=== PATIENT | female | born 1990 | race Caucasian/White ===

== ENCOUNTER → 2020-05-21 | Outpatient (CLI) | payer BC ==
[~2020-05-21] MED LIST: CLAR10CA3 PO; ENTY1INJ IV; MULTCAP PO; PROAAER10 INH; SERT-141 PO; SING10TA32 PO
== END ==
LOC: EDUNIT# 11:55 → M LABSMTC 11:59
PROVIDERS: ATTEND Anesthesiology
DX: Z01.812 Encounter for preprocedural laboratory examination (principal); Z20.828 Contact with and (suspected) exposure to other viral communicable diseases
CPT/HCPCS: C9803; U0003

== ENCOUNTER 2020-05-26 07:44 | Day surgery (SDC) | payer BC ==
[~2020-05-26] VITALS: Ht 160 cm; Wt 119.7 kg
[~2020-05-26 07:44] MED LIST changes: -ENTY1INJ IV; +NS 1,000 ML IV ONE
[2020-05-26] MEDS ORDERED: propofoL 200 MG/20 ML VIAL As Ordered ONE ×2 (08:48→09:29)
--- NOTE | 2020-05-26 09:31 | ROOR ---
Patient Name: Genevieve Johnson Procedure Date: 05/26/2020 8:47 AM Date of : 1990 Age: 29 Room: [facility] Gender: Female Note Status: Finalized Procedure: Colonoscopy Indications: Follow-up of Crohn's disease of the small bowel and colon, Disease activity assessment of Crohn's disease of the small bowel and colon, Assess therapeutic response to therapy of Crohn's disease of the small bowel and colon Providers: Phan Putnam MD Referring MD: Shahla Hurst NP Requesting Provider: Medicines: Monitored Anesthesia Care Complications: No immediate complications. Procedure: Pre-Anesthesia Assessment: - Prior to the procedure, a History and Physical was performed, and patient medications and allergies were reviewed. The patient is competent. The risks and benefits of the procedure and the sedation options and risks were discussed with the patient. All questions were answered and informed consent was obtained. Patient identification and proposed procedure were verified by the physician, the nurse and the anesthesiologist in the procedure room. Mental Status Examination: alert and oriented. Airway Examination: normal oropharyngeal airway and neck mobility. Respiratory Examination: clear to auscultation. CV Examination: normal. Prophylactic Antibiotics: The patient does not require prophylactic antibiotics. Prior Anticoagulants: The patient has taken no previous anticoagulant or antiplatelet agents. ASA Grade Assessment: II - A patient with mild systemic disease. After reviewing the risks and benefits, the patient was deemed in satisfactory condition to undergo the procedure. The anesthesia plan was to use monitored anesthesia care (MAC). Immediately prior to administration of medications, the patient was re-assessed for adequacy to receive sedatives. The heart rate, respiratory rate, oxygen saturations, blood pressure, adequacy of pulmonary ventilation, and response to care were monitored throughout the procedure. The physical status of the patient was re-assessed after the procedure. The Colonoscope was introduced through the anus and advanced to the terminal ileum, with identification of the appendiceal orifice and IC valve. The colonoscopy was performed without difficulty. The patient tolerated the procedure well. The quality of the bowel preparation was good. The terminal ileum, ileocecal valve, appendiceal orifice, and rectum were photographed. Scope insertion time was 3 minutes. Scope withdrawal time was 11 minutes. The total duration of the procedure was 14 minutes. Findings: The perianal exam findings include non-thrombosed external hemorrhoids, perianal fistula and skin tags. The terminal ileum contained a few ten mm ulcers. No bleeding was present. No stigmata of recent bleeding were seen. Biopsies were taken with a cold forceps for histology. Verification of patient identification for the specimen was done by the physician and nurse using the patient's name, date and medical record number. Estimated blood loss was minimal. Inflammation characterized by erosions, friability and granularity was found as patches surrounded by normal mucosa in the rectum, in the descending colon, in the ascending colon and at the cecum. This was moderate in severity and graded as Rutgeerts Score i2 (more than five aphthous lesions with normal intervening mucosa or skip areas of larger lesions or lesions confined to the ileocolonic anastomosis). Biopsies were taken with a cold forceps for histology. A fistula was found in the rectum. Non-bleeding external and internal hemorrhoids were found during retroflexion. The hemorrhoids were medium-sized. Impression: - Non-thrombosed external hemorrhoids, perianal fistula and perianal skin tags found on perianal exam. - A few ulcers in the terminal ileum. Biopsied. - Crohn's disease, with ileitis and colitis. Inflammation was found in the rectum, in the descending colon, in the ascending colon and at the cecum. This was moderate in severity and graded as Rutgeerts Score i2 (more than five aphthous lesions or skip areas of larger lesions or lesions confined to the ileocolonic anastomosis). Biopsied. - Colonic fistula. - Non-bleeding external and internal hemorrhoids. Recommendation: - Patient has a contact number available for emergencies. The signs and symptoms of potential delayed complications were discussed with the patient. Return to normal activities tomorrow. Written discharge instructions were provided to the patient. - High fiber diet. - Continue present medications. - Await pathology results. - Repeat colonoscopy in 1 year to check healing and to evaluate the response to therapy. - Return to GI clinic 1 - 2 weeks. Please call GI clinic @ [phone] for apppointment date and time. - Return to primary care physician. Phan Putnam MD Phan Putnam MD 05/26/2020 9:30:52 AM Electronically signed by Phan Putnam MD Number of Addenda: 0 Note Initiated On: 05/26/2020 8:47 AM Estimated Blood Loss: Estimated blood loss was minimal.
[2020-05-26 09:45] VITALS: BP 135/83
== END 2020-05-26 09:55 | disposition home or self-care (01) ==
LOC: M OPP 07:44
PROVIDERS: ATTEND Internal Medicine Gastroenterology
DX: K60.3 Anal fistula (principal); K64.4 Residual hemorrhoidal skin tags; K64.8 Other hemorrhoids; K50.813 Crohn's disease of both small and large intestine with fistula; Z09 Encounter for follow-up examination after completed treatment for conditions other than malignant neoplasm; Z79.899 Other long term (current) drug therapy

== ENCOUNTER 2020-07-08 13:59 | Outpatient (CLI) | payer BC ==
[~2020-07-08] VITALS: Ht 160 cm; Wt 117.9 kg
[~2020-07-08 13:59] MED LIST changes: -NS 1,000 ML IV ONE
[2020-07-08] MEDS ORDERED: VEDOLIZUMAB 300 MG in NS 250 ML IV ONE (14:00)
[2020-07-08 15:09] VITALS: BP 132/90
[2020-07-08] MEDS ORDERED: ENTY1INJ IV (15:13)
[2020-07-08 15:50] VITALS: BP 130/83
== END 2020-07-08 15:50 | disposition home or self-care (01) ==
LOC: M INFU 13:59
PROVIDERS: ATTEND Internal Medicine Gastroenterology
DX: K50.90 Crohn's disease, unspecified, without complications (principal)
CPT/HCPCS: 96365; J3380

== ENCOUNTER 2020-07-22 13:42 | Outpatient (CLI) | payer BC ==
[~2020-07-22] VITALS: Ht 160 cm; Wt 117.9 kg
[~2020-07-22 13:42] MED LIST changes: +ENTY1INJ IV
[2020-07-22 13:45] VITALS: BP 113/64
[2020-07-22] MEDS ORDERED: VEDOLIZUMAB 300 MG in NS 250 ML IV ONE (14:00)
[2020-07-22 15:10] VITALS: BP 131/88
== END 2020-07-22 15:10 | disposition home or self-care (01) ==
LOC: M INFU 13:42
PROVIDERS: ATTEND Internal Medicine Gastroenterology
DX: K50.90 Crohn's disease, unspecified, without complications (principal)
CPT/HCPCS: 96365; J3380

== ENCOUNTER 2020-08-19 13:42 | Outpatient (CLI) | payer BC ==
[~2020-08-19] VITALS: Ht 160 cm; Wt 117.9 kg
[2020-08-19 13:45] VITALS: BP 132/62
[2020-08-19] MEDS ORDERED: VEDOLIZUMAB 300 MG in NS 250 ML IV ONE (14:00)
[2020-08-19 15:00] VITALS: BP 126/68
== END 2020-08-19 15:00 | disposition home or self-care (01) ==
LOC: M INFU 13:42
PROVIDERS: ATTEND Internal Medicine Gastroenterology
DX: K50.90 Crohn's disease, unspecified, without complications (principal)
CPT/HCPCS: 96365; J3380

== ENCOUNTER 2020-10-14 14:00 | Outpatient (CLI) | payer BC ==
[~2020-10-14] VITALS: Ht 160 cm; Wt 121.1 kg
[~2020-10-14 14:00] MED LIST changes: +VEDOLIZUMAB 300 MG in NS 250 ML IV ONE
[2020-10-14 14:14] VITALS: BP 132/72
[2020-10-14 15:00] VITALS: BP 124/74
== END 2020-10-14 15:00 | disposition home or self-care (01) ==
LOC: M INFU 14:00
PROVIDERS: ATTEND Internal Medicine Gastroenterology
DX: K50.90 Crohn's disease, unspecified, without complications (principal)
CPT/HCPCS: 96365; J3380

== ENCOUNTER 2020-12-16 11:19 | Outpatient (CLI) | payer BC ==
[~2020-12-16] VITALS: Ht 160 cm; Wt 121.0 kg
[~2020-12-16 11:19] MED LIST changes: -VEDOLIZUMAB 300 MG in NS 250 ML IV ONE
[2020-12-16 11:30] VITALS: BP 149/81
[2020-12-16] MEDS ORDERED: VEDOLIZUMAB 300 MG in NS 250 ML IV ONE (11:30)
[2020-12-16 11:35] VITALS: BP 149/81
[2020-12-16 12:35] VITALS: BP 157/78
== END 2020-12-16 12:35 | disposition home or self-care (01) ==
LOC: M INFU 11:19
PROVIDERS: ATTEND Internal Medicine Gastroenterology
DX: K50.90 Crohn's disease, unspecified, without complications (principal)
CPT/HCPCS: 96365; J3380

== ENCOUNTER 2021-02-10 15:03 | Outpatient (CLI) | payer BC ==
[~2021-02-10] VITALS: Ht 160 cm; Wt 121.0 kg
[~2021-02-10 15:03] MED LIST changes: +VEDOLIZUMAB 300 MG in NS 250 ML IV ONE
[2021-02-10 15:13] VITALS: BP 131/71
[2021-02-10 16:40] VITALS: BP 129/73
== END 2021-02-10 16:40 | disposition home or self-care (01) ==
LOC: M INFU 15:03
PROVIDERS: ATTEND Internal Medicine Gastroenterology
DX: K50.90 Crohn's disease, unspecified, without complications (principal)
CPT/HCPCS: 96365; J3380

== ENCOUNTER 2021-04-07 15:06 | Outpatient (CLI) | payer BC ==
[~2021-04-07] VITALS: Ht 160 cm; Wt 121.0 kg
[2021-04-07 15:10] VITALS: BP 139/92
[2021-04-07 15:43] VITALS: BP 139/92
[2021-04-07 16:15] VITALS: BP 139/89
== END 2021-04-07 16:15 | disposition home or self-care (01) ==
LOC: M INFU 15:06
PROVIDERS: ATTEND Internal Medicine Gastroenterology
DX: K50.90 Crohn's disease, unspecified, without complications (principal)
CPT/HCPCS: 96365; J3380

== ENCOUNTER → 2021-11-03 | Outpatient (CLI) | payer BC ==
[~2021-11-03] MED LIST changes: +PROT1TAB2 PO; +THERTAB52 PO; -VEDOLIZUMAB 300 MG in NS 250 ML IV ONE
== END ==
LOC: M LABSMTC 11:31
PROVIDERS: ATTEND Anesthesiology
DX: Z01.818 Encounter for other preprocedural examination (principal); Z11.52 Encounter for screening for COVID-19

== ENCOUNTER 2021-11-08 09:59 | Day surgery (SDC) | payer BC ==
[~2021-11-08] VITALS: Ht 160 cm; Wt 127.4 kg
[~2021-11-08 09:59] MED LIST changes: +NS 1,000 ML IV ONE
[2021-11-08] MEDS ORDERED: LIDOCAINE 2% 100MG/5ML SDV (FOR ANES.) As Ordered ONE (11:32)
[2021-11-08] MEDS ORDERED: propofoL 200 MG/20 ML VIAL As Ordered ONE (11:39)
[2021-11-08 12:13] VITALS: BP 134/87
== END 2021-11-08 12:25 | disposition home or self-care (01) ==
LOC: M OPP 09:59
PROVIDERS: ATTEND Internal Medicine Gastroenterology
DX: K64.8 Other hemorrhoids (principal); K50.80 Crohn's disease of both small and large intestine without complications; K21.9 Gastro-esophageal reflux disease without esophagitis; F41.9 Anxiety disorder, unspecified; Z79.899 Other long term (current) drug therapy

== ENCOUNTER 2024-01-09 06:41 | Day surgery (SDC) | payer OTHER ==
[~2024-01-09] VITALS: Ht 160 cm; Wt 124.4 kg
[~2024-01-09 06:41] MED LIST changes: +LOSA100T8 PO; +MONT-5 PO; -NS 1,000 ML IV ONE; +POTA-151 PO; +SERT50TA29 PO; -SING10TA32 PO; +SYMB16INH INH
[2024-01-09] MEDS: NS 1,000 ML IV ONE (07:00)
[2024-01-09] MEDS ORDERED: propofoL 500 MG/50 ML VIAL As Ordered ONE (07:16)
[2024-01-09 08:00] VITALS: TEMP 97.5
[2024-01-09 08:20] VITALS: BP 122/73; O2SAT 96
== END 2024-01-09 08:25 | disposition home or self-care (01) ==
LOC: M OPP 06:41
PROVIDERS: ATTEND Internal Medicine Gastroenterology
DX: K50.10 Crohn's disease of large intestine without complications (principal); K64.8 Other hemorrhoids; K64.4 Residual hemorrhoidal skin tags; I10 Essential (primary) hypertension; J45.909 Unspecified asthma, uncomplicated; Z90.49 Acquired absence of other specified parts of digestive tract; Z79.899 Other long term (current) drug therapy; Z79.51 Long term (current) use of inhaled steroids